=== PATIENT | female | born 1960 | race Caucasian/White ===

== ENCOUNTER → 2017-12-09 | Outpatient (CLI) | payer OTHER ==
[2017-12-09 10:35] LABS: HCT 40.7 % (34.0-46.0); HGB 13.6 gm/dL (11.4-16.0); MCH 28.5 pg (25.0-35.0); MCHC 33.4 g/dL (31.0-37.0); MCV 85.4 fL (80.0-100.0); Mean Platelet Volume 7.2; Platelet Count 309 k/uL (150-450); RBC 4.76 m/uL (3.80-5.40); RDW 13.1 % (11.5-15.5); WBC 7.3 k/uL (3.8-10.6)
[2017-12-09 10:54] LABS: Anion Gap 10 mmol/L; Blood Urea Nitrogen 14 mg/dL (7-17); Calcium 9.9 mg/dL (8.4-10.2); Carbon Dioxide 31 mmol/L (22-30); Chloride 103 mmol/L (98-107); Glucose 85 mg/dL (74-99); Sodium 144 mmol/L (137-145)
== END | disposition home or self-care (01) ==
LOC: LABPAT 10:12
PROVIDERS: ATTEND Physician Assistant
DX: Z01.812 Encounter for preprocedural laboratory examination (principal); N20.2 Calculus of kidney with calculus of ureter; Z79.899 Other long term (current) drug therapy
CPT/HCPCS: 36415; 80048; 85027

== ENCOUNTER 2017-12-15 06:49 | Day surgery (SDC) | payer OTHER ==
[2017-12-09 12:02] VITALS: BMI 33.6
[~2017-12-15 06:49] MED LIST: LACTATED RINGERS 1,000 ML IV SCH; Pre Op ABX Message 1 EACH MISC MISCELLANE ONE
[2017-12-15 07:31] VITALS: TEMP 98.2
[2017-12-15] MEDS ORDERED: LIDOCAINE 1% 20 ML VIAL (10MG/ML) FOR IV START INTRADERMA ONE (07:40)
--- NOTE | 2017-12-15 08:22 | XR ---
EXAMINATION TYPE: XR KUB DATE OF EXAM: 12/15/2017 7:00 AM CLINICAL HISTORY: Preoperative evaluation of nephrolithiasis. TECHNIQUE: Single supine KUB image of the abdomen is obtained. COMPARISON: None. FINDINGS: There is a 6 mm calculus at the left mid pole. No right renal calculi are distinctly identi fied however hepatic flexure overlies the right renal shadow. No calculi are seen along the course of the ureters or within the pelvis. Osseous structures are grossly intact with mild degenerative coronado es of the femoral acetabular joints and cholecystectomy clips in the right upper quadrant. Bowel gas pattern is nonobstructive. IMPRESSION: 1. 6 mm left-sided renal calculus at the midpole. 2. No right renal calculi are definitively seen although the hepatic flexure overlies the right renal shadow. 3. No calculi are visualized along the courses of the ureters or within the pelvis.
[2017-12-15] MEDS ORDERED: MEPERIDINE 50 MG/ML SYRINGE ONE (08:39)
[2017-12-15] MEDS ORDERED: MIDAZOLAM 2 MG/2 ML VIAL ONE (08:39)
[2017-12-15] MEDS ORDERED: LIDOCAINE 1% INJ 10MG/ML (20 ML MDV) ONE (08:39)
[2017-12-15] MEDS ORDERED: fentaNYL (PF) 50 MCG/ML 2 ML AMP ONE (08:39)
[2017-12-15] MEDS ORDERED: PROPOFOL 10 MG/ML 20 ML VIAL IV ONE (08:39)
--- NOTE | 2017-12-15 09:28 | P.OP ---
Date of Procedure: 12/15/17 Preoperative Diagnosis: Left Renal Calculus Postoperative Diagnosis: Same Procedure(s) Performed: Left Extracorporal Shockwave Lithotripsy (ESWL) Anesthesia: MAC Surgeon: Jonatan Dias Estimated Blood Loss (ml): 0 IV fluids (ml): 650 Pathology: none sent Condition: stable Disposition: PACU Indications for Procedure: The patient was seen in the hospital with a 5 mm proximal ureteral stone. When seen in clinic, she was still having pain intermittently. KUB showed a 7 mm proximal ureteral calculus. She comes for ESWL. The preoperative KUB x-ray shows that the calculus has refluxed back into a midpole calyx. Operative Findings: The calculus appears to fragment. Description of Procedure: The patient was taken to the operating room and placed on the Dornier Compact Delta II lithotripter in the supine position. The calculus was seen on biplanar fluoroscopy. Once the patient was properly positioned and sedated, lithotripsy was performed. The energy level was gradually increased per protocol, to an energy level of 5. After 200 shocks were administered, a 2 minute pause was instituted per protocol. A total of 2292 shocks were given at a rate of 80 shocks per minute. Fluoroscopy was utilized at a minimum to ensure proper positioning and determine the treatment status. The appearance of the calculus appeared to change, suggesting fragmentation had occurred. The patient began coughing after 2292 shocks were given, and it was decided to terminate the procedure at that time. The patient tolerated the procedure well was taken to the recovery room in stable condition. Instructions were given to strain the urine, and the patient will follow-up within one week.
[2017-12-15 09:47] VITALS: RESP 18
[2017-12-15] MEDS ORDERED: HYDROcodone/APAP 5-325MG 1 EACH TAB PO ONE (10:51)
[2017-12-15] MEDS ORDERED: LACTATED RINGERS 1,000 ML IV ONE (10:53)
[2017-12-15 11:21] VITALS: BP 127/65; PULSE 47
== END 2017-12-15 11:47 | disposition home or self-care (01) ==
LOC: ORWHC2ENDO 06:49
PROVIDERS: ATTEND Urology
DX: N20.2 Calculus of kidney with calculus of ureter (principal); Z88.4 Allergy status to anesthetic agent; Z79.1 Long term (current) use of non-steroidal anti-inflammatories (NSAID); Z79.899 Other long term (current) drug therapy
CPT/HCPCS: 74018; 50590; J2250; J2175; J2001; J3010; J2704

== ENCOUNTER → 2017-12-19 | Outpatient (CLI) | payer OTHER ==
--- NOTE | 2017-12-19 09:42 | XR ---
EXAMINATION TYPE: XR KUB DATE OF EXAM: 12/19/2017 COMPARISON: 12/15/2017 HISTORY: Follow-up post lithotripsy TECHNIQUE: One view abdominal series FINDINGS: The osseous structures are intact. The bowel gas pattern is nonspecific. There are now 3 tiny fragme nt seen involving the lower pole left kidney with the largest measuring 2 mm. No suspicious calcifica tions along the left paraspinal line or pelvis. Retained fecal debris limits assessment of the right kidney. Postsurgical change in the right upper quadrant and osteitis pubis condensans incidentally noted. IMPRESSION: 1. There now is approximately 3 tiny punctate calcifications with the largest measuring 2 mm overlyin g the lower pole left kidney. No suspicious calcifications are seen within the course of the left par aspinal region or pelvis. Previous calcification measures 6.2 mm
== END | disposition home or self-care (01) ==
LOC: RADXRMAIN 07:49
PROVIDERS: ATTEND Physician Assistant
DX: N28.9 Disorder of kidney and ureter, unspecified (principal)
CPT/HCPCS: 74018